=== PATIENT | male | born 1980 | race Caucasian/White ===

== ENCOUNTER 2019-06-10 10:07 | Emergency (ER) | payer OTHER ==
[~2019-06-10] VITALS: Ht 182.9 cm; Wt 124.7 kg
[~2019-06-10 10:07] MED LIST: ALBUTEROL INHAL17 GM IH; CLONIDINE0.1 PO; HYDROCHLOROTH12.5 M1 PO; LOPRESSOR50 MG PO; NOHOMEMEDICATIONS; ZPAK PO
[2019-06-10] MEDS ORDERED: ATENOLOL 100MG100 MG PO (10:14)
[2019-06-10 10:57] LABS: ABSOLUTE BASOPHILS 0.1 thou/uL (0.0-0.2); ABSOLUTE EOSINOPHILS 0.1 thou/uL (0.0-0.7); ABSOLUTE LYMPHOCYTES 1.1 thou/uL (0.8-5.3); ABSOLUTE MONOCYTES 0.6 thou/uL (0.0-1.2); ABSOLUTE NEUTROPHILS 4.7 thou/uL (1.6-8.1); HEMATOCRIT 47.2 % (42.0-52.0); LYMPHOCYTES 16.4 %; MCH 27.6 pg (26.0-34.0); MCHC 33.8 g/dL (28.0-37.0); MCV 81.6 fL (80.0-100.0); MONOCYTES 9.1 %; MPV 8.4 fl. (7.2-11.1); NUCLEATED RBCS 0 /100WBC; PLATELET COUNT* 274 thou/uL (150-400); POLYS 72.5 %; RBC 5.79 mil/uL (4.50-6.00); RDW-CV 13.8 % (10.5-14.5); WBC 6.5 thou/uL (4.0-11.0)
[2019-06-10 11:06] LABS: CALCIUM 9.6 mg/dL (8.5-10.1); CREATININE 1.2 mg/dL (0.6-1.3); POTASSIUM 4.2 mmol/L (3.5-5.1)
[2019-06-10 11:11] LABS: ALBUMIN 4.1 g/dL (3.4-5.0); TOTAL BILIRUBIN 0.8 mg/dL (<0.1-1.0); TOTAL PROTEIN 8.1 g/dL (6.4-8.2)
[2019-06-10 11:38] LABS: URINE BILIRUBIN NEGATIVE (Negative); URINE BLOOD 3+ (Negative); URINE CLARITY CLEAR; URINE COLOR YELLOW; URINE GLUCOSE-RANDOM NEGATIVE (Negative); URINE KETONES NEGATIVE (Negative); URINE LEUKOCYTES-REFLEX NEGATIVE (Negative); URINE NITRITE-REFLEX NEGATIVE (Negative); URINE PROTEIN TRACE (Negative)
[2019-06-10 11:49] LABS: CASTS None Seen /LPF (None Seen); CRYSTALS None Seen /LPF (None Seen); SQUAMOUS 0-3 Few /LPF (0-3); URINE RBC 0-2 Rare /HPF (0-2); URINE WBC-REFLEX >25 Many /HPF (0-5)
[2019-06-10] MEDS ORDERED: FLOMAX0.4 MG PO (13:15)
[2019-06-10] MEDS ORDERED: NORCO 5-325 TA1 EAC1 PO (13:15)
[2019-06-10 13:29] VITALS: BP 164/89
[2019-06-11] MEDS ORDERED: FLOMAX0.4 MG PO (14:00)
[2019-06-11] MEDS ORDERED: OXYBUTYNIN 5 MG5 M2 PO (14:02)
[2019-06-11] MEDS ORDERED: PYRIDIUM200 MG PO (14:03)
[2019-06-11] MEDS ORDERED: CIPRO500 M1 PO (14:04)
[2019-06-11] MEDS ORDERED: NORCO 5-325 TA1 EAC1 PO (14:05)
== END 2019-06-10 13:29 | disposition home or self-care (01) ==
LOC: M.ERS 10:07
PROVIDERS: Nurse Practitioner Family
DX: N20.1 Calculus of ureter (principal); N23 Unspecified renal colic; I10 Essential (primary) hypertension; Z88.1 Allergy status to other antibiotic agents; Z88.8 Allergy status to other drugs, medicaments and biological substances

== ENCOUNTER 2019-06-11 04:38 | Inpatient (IN) | payer OTHER ==
[~2019-06-11] VITALS: Ht 182.9 cm; Wt 124.9 kg
[~2019-06-11 04:38] MED LIST changes: +ATENOLOL 100MG100 MG PO; +FLOMAX0.4 MG PO; +NORCO 5-325 TA1 EAC1 PO
[2019-06-11 04:39] VITALS: BP 163/99
[2019-06-11 06:18] VITALS: BP 125/77
[2019-06-11 06:35] VITALS: BP 144/71
[2019-06-11 08:05] VITALS: BP 139/80
[2019-06-11 09:19] VITALS: BP 139/80
[2019-06-11 10:52] VITALS: BP 139/80
[2019-06-11] MEDS ORDERED: FLOMAX0.4 MG PO (14:00)
[2019-06-11] MEDS ORDERED: OXYBUTYNIN 5 MG5 M2 PO (14:02)
[2019-06-11] MEDS ORDERED: PYRIDIUM200 MG PO (14:03)
[2019-06-11] MEDS ORDERED: CIPRO500 M1 PO (14:04)
[2019-06-11] MEDS ORDERED: NORCO 5-325 TA1 EAC1 PO (14:05)
--- NOTE | 2019-06-11 14:45 | NUR ---
PATIENT DISCHARGED TO HOME. DISCHARGE PAPERS REVIEWED AND SIGNED. PRESCRIPTIONS AND INFORMATION SHEETS GIVEN. IV REMOVED. PATIENT DENIES ANY FURTHER NEEDS AT THIS TIME. PATIENT TAKEN AMBULATORY TO EXIT. LEFT WITH MOTHER.
--- NOTE | 2019-06-15 19:16 | OP ---
[address] [address] OPERATIVE REPORT Name: TAPAN LIEBERMAN Room: [address] M.R.#: [id number] Admission: 06/11/19 Attend Phys: Dani Kenny MD Discharge: 06/11/19 Date of : 84 Report #: [id number] THIS REPORT FOR: //name// CC: [facility] physician/PCP Dani Kenny DATE OF SERVICE: 06/11/2019 PREOPERATIVE DIAGNOSIS: Left nephrolithiasis. POSTOPERATIVE DIAGNOSIS: Left nephrolithiasis. PROCEDURES PERFORMED: 1. Cystoscopy. 2. Left retrograde pyelogram. 3. Left ureteroscopy with laser lithotripsy and stone basket extraction. 4. Left ureteral stent placement. STAFF: Chai Tran MD COMPLICATIONS: None. DRAINS: 6 x 26 left ureteral stent. SPECIMENS: Left ureteral stone. INDICATIONS FOR PROCEDURE: The patient is a 38-year-old gentleman who presented to the ER yesterday with left-sided flank pain. A CT demonstrated a 6 mm proximal ureteral stone with hydronephrosis. He was discharged home with pain medications and unfortunately represented overnight with increasing left flank pain and nausea. After thorough discussion including the risks and benefits, he is willing to proceed with ureteroscopy. DESCRIPTION OF PROCEDURE: On 06/11/2019, after consent was obtained, the patient was taken to the operating room and placed in supine position. He was then placed under general anesthesia. He received preoperative IV Cipro for antibiotic coverage. He was then placed in dorsal lithotomy and his genitals were prepped and draped in normal sterile fashion. We began the procedure by inserting a 22.5-Tristanian rigid cystoscope transurethrally without difficulty. Once in the bladder, I identified the left ureteral orifice, this was then cannulated with a 5-Tristanian open-ended stent. A retrograde pyelogram was performed, which demonstrated a stone in the mid ureter and some mild hydronephrosis. At this point, a sensor wire was passed up in the upper pole under fluoroscopic guidance and I went through the cystoscope. I then inserted a semirigid ureteroscope and passed this up alongside the sensor wire to the mid ureter until I identified the stone. At this point, a 1.9 [place] [address] OPERATIVE REPORT Name: TAPAN LIEBERMAN Room: [address]#: [id number] Admission: 06/11/19 Attend Phys: Dani Kenny MD Discharge: 06/11/19 Date of : 84 Report #: [id number] utilized to grab the stone, I was unable to remove this and so at this point, I passed a 272 micron laser fiber through the scope alongside the basket. I lasered the stone into multiple smaller fragments until these fragments were able to be removed without difficulty using the nitinol basket. I made one final pass of the ureteroscope up to the level of the UPJ, there was no evidence of any further stone burden through the ureteroscope. I then backloaded the cystoscope over the sensor wire, I selected a 6 x 26 stent which was passed up in the renal pelvis under fluoroscopic guidance, had a good coil in the urinary bladder under direct visual guidance. The patient's bladder was emptied and was awakened from anesthesia. <ELECTRONICALLY SIGNED> By: Chai Tran MD 06/15/19 [id number] Tran MD /nt
[2019-06-21 11:08] LABS: STONE CA OXALATE DIHYDRATE 15 % (()); STONE CA OXALATE MONOHYDRATE 80 % (()); STONE COLOR Brown (()); STONE SIZE 4x2x2 mm (()); STONE WEIGHT 12.4 mg (())
== END 2019-06-11 14:45 | disposition home or self-care (01) | DRG 661 ==
LOC: M.ERS 04:38 → M.TBA-ER 05:07 → M.3W 06:17
PROVIDERS: ADMIT Internal Medicine
PROC: 0WFR8ZZ Fragmentation in Genitourinary Tract, Via Natural or Artificial Opening Endoscopic (ICD-10-PCS; principal; 2019-06-11)
PROC: BT1F1ZZ Fluoroscopy of Left Kidney, Ureter and Bladder using Low Osmolar Contrast (ICD-10-PCS; principal; 2019-06-11)
PROC: 0T778DZ Dilation of Left Ureter with Intraluminal Device, Via Natural or Artificial Opening Endoscopic (ICD-10-PCS; principal; 2019-06-11)
DX: N13.2 Hydronephrosis with renal and ureteral calculous obstruction (principal); I10 Essential (primary) hypertension; Z88.1 Allergy status to other antibiotic agents; Z88.8 Allergy status to other drugs, medicaments and biological substances; Z79.899 Other long term (current) drug therapy